=== PATIENT | female | born 1945 | race Caucasian/White ===

== ENCOUNTER 2016-10-01 14:50 | Emergency (ER) | payer OTHER, MEDICARE ==
[2016-10-01 15:17] VITALS: BP 123/92; PULSE 87; TEMP 98.4; BMI 29.6
--- NOTE | 2016-10-01 16:11 | PDOC ---
History of Present Illness - General Chief Complaint: Laceration Stated Complaint: LACERATED RT FINGER Time Seen by Provider: 10/01/16 15:59 History Source: Patient Exam Limitations: No Limitations - History of Present Illness Initial Comments: 10/01/16 16:34 10/01/16 17:21 Chief complaint: Puncture wound to right middle finger History of present illness: Patient is a 71-year-old female with a history of COPD/htn and asthma here today with a puncture wound to her right distal palmar middle finger trying to open the door stopper stopper. Pt. reports putting a lot of pressure on wound however bleeding would not stop. Patient takes a baby aspirin 3 times a week. Patient denies any pain or numbness of finger. Patient is up-to-date with tetanus 10/01/16 17:24 Occurred: reports: just prior to arrival Severity: reports: mild (rt. middle finger distal, palmar aspect, puncture wound ) Pain Location: reports: upper extremity (rt. middle distal palmar aspect puncture wound) Method of Injury: Yes: direct blow (by door stopper) Modifying Factors: improves with: None Loss of Consciousness: no loss of consciousness Associated Symptoms (Fall): denies symptoms Past History - Past Medical History Allergies/Adverse Reactions: Allergies Allergy/AdvReac Type Severity Reaction Status Date / Time Penicillins Allergy Verified 10/01/16 15:17 Home Medications: Ambulatory Orders Amlodipine Besylate/Benazepril [Lotrel 5-20 mg Capsule] 1 mg PO DAILY 07/15/13 Aspirin Coated [Ecotrin -] 81 mg PO MOWEFR 07/15/13 Ca Cmb No.1/Vit D3/B-6/FA/B12 [Vitamin D3 1,000 Unit Tablet] 1,000 iu PO DAILY 07/15/13 Fluticasone/Salmeterol [Advair Hfa 115-21 Mcg Inhaler] 12 gm IH BID 07/15/13 GuaiFENesin [Mucinex] 600 mg PO DAILY 07/15/13 Multivit-Min/FA/Lycopene/Lut [Centrum Silver Tablet] 1 tab PO DAILY 07/15/13 Tiotropium [place] [Spiriva] 18 mcg IH DAILY 07/15/13 Albuterol Sulfate Inhaler - [Ventolin HFA Inhaler -] 1 - 2 inh IH Q4H PRN Montelukast Na [Singulair -] 10 mg PO DAILY 07/18/13 COPD: Yes HTN: Yes - Surgical History Lung Surgery: Yes (nodule removed from lung) - Psycho/Social/Smoking Cessation Hx Anxiety: No Suicidal Ideation: No Smoking History: Former smoker Have you smoked in the past 12 months: No If you are a former smoker, when did you quit?: 30 yrs Information on smoking cessation initiated: No Hx Alcohol Use: No Drug/Substance Use Hx: No Substance Use Type: None Hx Substance Use Treatment: No Review of Systems - Review of Systems Able to Perform ROS?: Yes Constitutional: No: Symptoms Reported HEENTM: No: Symptoms Reported Respiratory: No: Symptoms reported Cardiac (ROS): No: Symptoms Reported Musculoskeletal: No: Symptoms Reported Integumentary: Yes: Other (puncture wound rt. middle finger, distal, palmar aspect) Neurological: No: Symptoms reported *Physical Exam - Vital Signs Last Vital Signs Temp Pulse Resp BP Pulse Ox 98.4 F 87 20 123/92 97 10/01/16 15:14 10/01/16 15:14 10/01/16 15:14 10/01/16 15:14 10/01/16 15:14 - Physical Exam General Appearance: Yes: Appropriately Dressed Comments:: 10/01/16 16:31 radial pulse 4 + rt. Extremity: positive: Normal Capillary Refill, Normal Range of Motion (rt. middle finger distal palmar aspect puncture wound ). negative: Normal Inspection Integumentary: positive: Normal Color (rt. middle finger), Other (rt. middle distal palmar aspect puncture wound ) Neurologic: positive: Alert, Normal Response, Respond to painful stimul, Responsive. negative: Sensory Deficit (rt. middle finger ) Procedures - Consent Consent obtained: From Patient - Laceration/Wound Repair Right Distal Volar Finger Wound Length: to 2.5 cm Wound Explored: clean Wound's Depth, Shape: superficial Irrigated w/ Saline: Yes Betadine Prep: Yes Number of Sutures: 0 Layer Closure: No Sterile Dressing Applied: Yes (rt. middle finger puncture wound ) Progress: 10/01/16 16:34 Right distal palmar middle finger tiny puncture wound cleansed with Betadine and normal saline 0.9% dried areas and apply tiny amount of Surgicel, Telfa and Juan Medical Decision Making - Medical Decision Making 10/01/16 17:24 Patient is a 71-year-old female with a history of COPD/htn and asthma here today with a puncture wound to her right distal palmar middle finger trying to open the door stopper stopper. Pt. reports putting a lot of pressure on wound however bleeding would not stop. Patient takes a baby aspirin 3 times a week. Patient denies any pain or numbness of finger. Patient is up-to-date with tetanus. Rt. middle distal palmar finger puncture wound PLAN: Applied tiny amount of Surgicel to right distal palmar finger after cleansing with Betadine and normal saline 0.9% and apply Telfa and Juan bleeding stopped Patient instructed to take Cipro 500 mg twice a day 7 days has at home Patient instructed to keep finger dry until this Thursday then may take off dressing allow Surgicel to fall off on its own and then cleansed finger with antibacterial soap and water pat dry and apply tiny amount of bacitracin ointment and dressing when out of house let air out at night *DC/Admit/Observation/Transfer Diagnosis at time of Disposition: Puncture wound of finger of right hand Qualifiers: Encounter type: initial encounter Qualified Code(s): S61.239A - Puncture wound without foreign body of unspecified finger without damage to nail, initial encounter - Discharge Dispostion Disposition: HOME Condition at time of disposition: Stable - Referrals Referrals: Song Hamilton MD [Primary Care Provider] - - Patient Instructions Additional Instructions: Keep right middle finger dry and dressing in place until Thursday morning than may remove gauge allow surgicel to fall off on it own than may apply a tiny amount of bacitracin ointment after washing finger twice daily with antibacterial soap drying it well cover with bandage when out of house let air out at night Return to emergency room if any discharge from wound or any redness of finger or swelling or increased tenderness take cipro 500 mg twice daily for 7 days Patient voiced understanding of discharge instructions and all questions were answered
== END 2016-10-01 16:43 | disposition home or self-care (01) ==
LOC: JERFT 14:50
PROC: 0HQFXZZ Repair Right Hand Skin, External Approach (ICD-10-PCS; principal; 2016-10-01)
DX: S61.232A Puncture wound without foreign body of right middle finger without damage to nail, initial encounter (principal); W26.8XXA Contact with other sharp object(s), not elsewhere classified, initial encounter; Y93.89 Activity, other specified; Y92.89 Other specified places as the place of occurrence of the external cause; I10 Essential (primary) hypertension; J44.9 Chronic obstructive pulmonary disease, unspecified
CPT/HCPCS: 12001-25; 99281-25

== ENCOUNTER → 2017-01-26 | Day surgery (SDC) | payer OTHER, MEDICARE ==
[2017-01-23 09:57] VITALS: BMI 29.2
[2017-01-26 08:15] LABS: BASOPHIL 0.6 % (0-2.0); MCH 30.3 pg (25.7-33.7); MCHC 33.5 g/dl (32.0-36.0); MEAN CELL VOLUME 90.5 fl (80-96); MEAN PLT VOLUME 8.1 fl (7.5-11.1); NEUTROPHILS 70.1 % (42.8-82.8); PLATELET COUNT 312 K/MM3 (134-434); RDW 13.7 % (11.6-15.6); WHITE BLOOD COUNT 8.7 K/mm3 (4.0-10.0)
[2017-01-26 08:37] VITALS: TEMP 97.6
[2017-01-26 08:40] LABS: INR 0.93 (0.82-1.09); PROTHROMBIN TIME (PATIENT) 10.2 SEC (9.98-11.88)
[2017-01-26 10:51] VITALS: BP 132/63; PULSE 107
== END | disposition home or self-care (01) ==
LOC: JASU-SURG 07:59
PROVIDERS: ATTEND Internal Medicine Pulmonary Disease
PROC: BB24YZZ Computerized Tomography (CT Scan) of Bilateral Lungs using Other Contrast (ICD-10-PCS; principal; 2017-01-26)
PROC: 0BBG3ZX Excision of Left Upper Lung Lobe, Percutaneous Approach, Diagnostic (ICD-10-PCS; 2017-01-26)
DX: R91.8 Other nonspecific abnormal finding of lung field (principal); Z53.8 Procedure and treatment not carried out for other reasons
CPT/HCPCS: 36415; 71250-TC; 85025; 85610

== ENCOUNTER 2018-03-28 10:02 | Emergency (ER) | payer OTHER, MEDICARE ==
[2018-03-28 10:10] VITALS: BP 139/67; PULSE 99; TEMP 98; BMI 29.2
--- NOTE | 2018-03-28 10:39 | PDOC ---
History of Present Illness - General Chief Complaint: Injury Stated Complaint: RT KNEE INJURY Time Seen by Provider: 03/28/18 10:26 History Source: Patient Exam Limitations: Clinical Condition - History of Present Illness Initial Comments: 03/28/18 10:35 Patient with no significant past medication present with complaint of right knee pain status post slip and fall on the concrete floor yesterday. Patient reports increased pain with ambulation and flexion of right knee. Patient denies hitting head or loss of consciousness. Patient denies any other symptoms Timing/Duration: 24 hours Past History - Past Medical History Allergies/Adverse Reactions: Allergies Allergy/AdvReac Type Severity Reaction Status Date / Time Penicillins Allergy Verified 03/28/18 10:09 Home Medications: Ambulatory Orders Aspirin Coated [Ecotrin -] 81 mg PO MOWEFR 07/15/13 Multivit-Min/FA/Lycopene/Lut [Centrum Silver Tablet] 1 tab PO DAILY 07/15/13 Tiotropium [place] [Spiriva] 18 mcg IH DAILY 07/15/13 Montelukast Na [Singulair -] 10 mg PO DAILY 07/18/13 Albuterol 0.083% Nebulizer Erum [Ventolin 0.083%] 1 neb NEB DAILY 01/23/17 Albuterol Sulfate [Proair Respiclick] 90 mcg IH PRN PRN 01/23/17 Amlodipine Besylate/Benazepril [Lotrel 10-20 mg Capsule] 1 tab PO DAILY Cholecalciferol (Vitamin D3) [Vitamin D3 -] 1,000 unit PO DAILY 01/23/17 Guaifenesin [Mucinex] 600 mg PO DAILY 01/23/17 Ranitidine HCl [Zantac] 150 mg PO BID 01/23/17 Salmeterol/Fluticasone [Advair 500Mcg/50Mcg] 1 inh PO BID 01/23/17 Naproxen 500 mg PO BID PRN #20 tablet 03/28/18 Asthma: Yes COPD: Yes GI Disorders: Yes (REFLUX) HTN: Yes - Surgical History Lung Surgery: Yes (nodule removed from lung) - Suicide/Smoking/Psychosocial Hx Smoking History: Never smoked Have you smoked in the past 12 months: No If you are a former smoker, when did you quit?: 30 yrs Information on smoking cessation initiated: No Hx Alcohol Use: No Drug/Substance Use Hx: No Substance Use Type: None Hx Substance Use Treatment: No Review of Systems - Review of Systems Able to Perform ROS?: Yes Is the patient limited [place]ian proficient: No Constitutional: No: Weakness HEENTM: No: Blurred Vision, Double Vision Respiratory: No: Symptoms reported Cardiac (ROS): No: Symptoms Reported ABD/GI: No: Symptoms Reported Musculoskeletal: Yes: See HPI, Joint Pain (right knee), Muscle Pain (anterior right knee). No: Joint Swelling, Muscle Weakness, Joint Stiffness All Other Systems: Reviewed and Negative *Physical Exam - Vital Signs Last Vital Signs Temp Pulse Resp BP Pulse Ox 98 F 99 H 18 139/67 97 03/28/18 10:07 03/28/18 10:07 03/28/18 10:07 03/28/18 10:07 03/28/18 10:07 - Physical Exam Comments: 03/28/18 10:37 GENERAL: Well developed, well nourished. Awake and alert. No acute distress. CARDIOVASCULAR: Regular rate and rhythm. No murmurs, rubs, or gallops. PULMONARY: No evidence of respiratory distress. Lungs clear to auscultation bilaterally. No wheezing, rales or rhonchi. ABDOMINAL: Soft. Non-tender. Non-distended. No rebound or guarding. No organomegaly. Normoactive bowel sounds MUSCULOSKELETAL : moderate tenderness to anterior patella of right knee. mild tenderness to medial and lateral collateral ligament of right knee. no knee swelling. neg anterior-posterior drawer test. bony deformities EXTREMITIES: No cyanosis. No clubbing. No edema. No calf tenderness. SKIN: Warm and dry. Normal capillary refill. No rashes. No jaundice. NEUROLOGICAL: Alert, awake, appropriate. No motor deficits in the lower extremities. Gait is normal without ataxia. PSYCHIATRIC: Cooperative. Good eye contact. Appropriate mood and affect. General Appearance: Yes: Nourished, Appropriately Dressed. No: Apparent Distress ED Treatment Course - RADIOLOGY Radiology Studies Ordered: Category Date Time Status KNEE 3 POS-RIGHT [RAD] Stat Radiology 03/28/18 10:34 Ordered Medical Decision Making - Medical Decision Making 03/28/18 10:38 Patient with no significant past medication present with complaint of right knee pain status post slip and fall yesterday with increased pain with ambulation and flexion of right knee. Exam significant for moderate tenderness to anterior patellar of right knee. X-ray of right knee ordered to rule out acute fracture or dislocation. Treat on imaging results 03/28/18 11:10 x-ray of right knee shows no acute fracture or dislocation. Patient stable for discharge on NSAIDS and heat therapy with orthopedics follow-up *DC/Admit/Observation/Transfer Diagnosis at time of Disposition: Contusion of knee, right Qualifiers: Encounter type: initial encounter Qualified Code(s): S80.01XA - Contusion of right knee, initial encounter - Discharge Dispostion Disposition: HOME Condition at time of disposition: Stable Decision to Admit order: No - Prescriptions Prescriptions: Naproxen 500 mg PO BID PRN #20 tablet PRN Reason: knee pain - Referrals Referrals: Song Hamilton MD [Primary Care Provider] - Jitendra Boo MD [Staff Physician] - - Patient Instructions Printed Discharge Instructions: DI for Knee Pain Additional Instructions: Your x-ray shows no fracture. Take prescribed medication as needed for pain. Elevate right knee for next 24 hours and apply heat to right knee 2-3 times a day for 5-10mins as needed - Post Discharge Activity
== END 2018-03-28 11:22 | disposition home or self-care (01) ==
LOC: JERFT 10:02
DX: S80.01XA Contusion of right knee, initial encounter (principal); W18.39XA Other fall on same level, initial encounter; Y93.89 Activity, other specified; Y92.89 Other specified places as the place of occurrence of the external cause; Y99.8 Other external cause status; I10 Essential (primary) hypertension; J45.909 Unspecified asthma, uncomplicated; J44.9 Chronic obstructive pulmonary disease, unspecified; K21.9 Gastro-esophageal reflux disease without esophagitis
CPT/HCPCS: 73562-TC-RT-FY; 99281-25

== ENCOUNTER 2021-09-11 04:43 | Day surgery (SDC) | payer OTHER, MEDICARE ==
[2021-09-10 11:15] VITALS: BMI 29.9
[~2021-09-11 04:43] MED LIST: ACETAMINOPHEN 325 MG TABLET (FP) PO PRN
[2021-09-11] MEDS ORDERED: CHONDROITIN SU A/HYALUR SOD 1 KIT ONE (07:16)
[2021-09-11] MEDS ORDERED: TRYPAN BLUE 0.5 ML DISP.SYRIN ONE ×2 (08:13→12:09)
[2021-09-11] MEDS ORDERED: PHENYLEPHRINE 2.5% OPTHALMIC DROP BOTTLE ONE ×2 (09:50→09:52)
[2021-09-11] MEDS ORDERED: CYCLOPENTOLATE HCL 1% OPHTH SOLN 2 ML BOTTLE ONE (09:50)
[2021-09-11] MEDS ORDERED: OFLOXACIN 0.3% OPHTHALMIC SOLUTION 5 ML BOTTLE ONE (09:50)
[2021-09-11] MEDS ORDERED: KETOROLAC TROMETHAMINE 0.5% EYE DROP 1 DROP DROPS ONE (09:50)
[2021-09-11] MEDS ORDERED: TROPICAMIDE 1% OPHTH SOLN 15 ML BOTTLE ONE (09:50)
[2021-09-11] MEDS: TROPICAMIDE 1% OPHTH SOLN 15 ML BOTTLE OP SCH ×3 (10:05→10:30)
[2021-09-11] MEDS: CYCLOPENTOLATE HCL 1% OPHTH SOLN 2 ML BOTTLE OP SCH ×3 (10:05→10:30)
[2021-09-11] MEDS: OFLOXACIN 0.3% OPHTHALMIC SOLUTION 5 ML BOTTLE OP SCH ×3 (10:05→10:30)
[2021-09-11] MEDS: PHENYLEPHRINE 2.5% OPHTH SOLN 15 ML BOTTLE OP SCH ×3 (10:05→10:30)
[2021-09-11] MEDS: KETOROLAC TROMETHAMINE 0.5% EYE DROP 1 DROP DROPS OP SCH ×3 (10:05→10:30)
[2021-09-11] MEDS ORDERED: ACETYLCHOLINE 1:100 INTRA-OCUL 20 MG/2 ML KIT ONE (12:09)
[2021-09-11] MEDS ORDERED: LIDOCAINE HCL/PF 2% SDV 5ML VIAL ONE (12:41)
[2021-09-11] MEDS ORDERED: PROPOFOL 20 ML ONE ×2 (12:41)
[2021-09-11] MEDS ORDERED: POVIDONE-IODINE 5% OPHTHALMIC PREP 30 ML SOLUTION OD ONE (12:55)
[2021-09-11] MEDS ORDERED: LIDOCAINE HCL 1% PRESERVATIVE FREE - 30ML VIAL IO ONE (13:03)
[2021-09-11] MEDS ORDERED: DEXAMETHASONE SOD PHOSPHATE 4 MG/1 ML VIAL ONE (13:04)
[2021-09-11] MEDS ORDERED: CHONDROITIN SU A/HYALUR SOD 1 KIT IO ONE (13:04)
[2021-09-11] MEDS ORDERED: BSS (NA/CA/MG/K) BALANCED SALT SOLUTION OPHTH SOLN 15 ML BOTTLE IO ONE ×2 (13:05→13:19)
[2021-09-11] MEDS ORDERED: EPINEPHrine/PF 1 MG/1 ML (1:1,000) AMPULE IO ONE (13:09)
[2021-09-11] MEDS ORDERED: ONDANSETRON 4 MG/2 ML VIAL IVPUSH PRN (13:43)
[2021-09-11] MEDS ORDERED: SODIUM CHLORIDE 1,000 ML IV SCH (13:45)
[2021-09-11 15:33] VITALS: BP 129/72; PULSE 97; TEMP 97.1
== END 2021-09-11 15:25 | disposition home or self-care (01) ==
LOC: JASU-SURG 04:43
PROVIDERS: ATTEND Ophthalmology
PROC: 08RJ3JZ Replacement of Right Lens with Synthetic Substitute, Percutaneous Approach (ICD-10-PCS; principal; 2021-09-11 12:00)
DX: H26.9 Unspecified cataract (principal); J44.9 Chronic obstructive pulmonary disease, unspecified; F41.9 Anxiety disorder, unspecified
CPT/HCPCS: 94760

== ENCOUNTER 2021-10-25 06:50 | Inpatient (IN) | payer OTHER, MEDICARE ==
[2021-10-25 06:57] VITALS: BMI 29.6
[2021-10-25] MEDS ORDERED: ALBUTEROL SO4 2.5/IPRATROPIUM 0.5 INH SOL 3 ML VIAL.NEB. NEB ONE ×5 (07:27→08:27)
[2021-10-25 08:00] LABS: VENOUS BASE EXCESS 0.5 mmol/L (-2-2); VENOUS O2 SATURATION 91.3 % (70-80); VENOUS PCO2 37.5 mmHg (38-52); VENOUS PH 7.433 (7.310-7.410)
[2021-10-25 08:17] LABS: HEMATOCRIT 42.4 % (32.4-45.2); HEMOGLOBIN 14.1 GM/dL (10.7-15.3); MCH 30.3 pg (25.7-33.7); MCHC 33.2 g/dl (32.0-36.0); MEAN CELL VOLUME 91.1 fl (80-96); MEAN PLT VOLUME 8.9 fl (7.5-11.1); PLATELET COUNT 272 10^3/uL (134-434); RBC 4.66 M/mm3 (3.60-5.2); RDW 13.3 % (11.6-15.6); WHITE BLOOD COUNT 20.3 K/mm3 (4.0-10.0)
[2021-10-25 08:30] LABS: N-TERMINAL BNP 617.1 pg/ml (5-450)
[2021-10-25 08:40] LABS: INR 0.91 (0.83-1.09); PROTHROMBIN TIME (PATIENT) 10.5 SEC (9.7-13.0)
[2021-10-25 08:43] LABS: ACTIVATED PTT 24.4 SECONDS (25.2-36.5)
[2021-10-25 08:48] LABS: BLOOD UREA NITROGEN 26.5 mg/dL (7-18); CALCIUM 9.4 mg/dL (8.5-10.1); MAGNESIUM 1.9 mg/dL (1.8-2.4)
[2021-10-25 08:51] LABS: CREATININE 0.9 mg/dL (0.55-1.3)
[2021-10-25 08:53] LABS: BILIRUBIN,TOTAL 0.7 mg/dL (0.2-1); TOT PROT 6.9 g/dl (6.4-8.2)
[2021-10-25] MEDS ORDERED: FUROSEMIDE 40 MG/4 ML INJECTABLE VIAL IVPUSH ONE (09:27)
[2021-10-25] MEDS ORDERED: methylPREDNISolone NA SUCC 125 MG/2 ML VIAL IVPB ONE (09:27)
[2021-10-25] MEDS ORDERED: FUROSEMIDE 40 MG/4 ML INJECTABLE VIAL ONE (09:34)
[2021-10-25] MEDS ORDERED: methylPREDNISolone NA SUCC 125 MG/2 ML VIAL ONE (09:34)
[2021-10-25 10:28] LABS: ANISOCYTOSIS 0; HELMET CELLS 0; HOWELL-JOLLY BODIES 0; MACROCYTOSIS 0; OVALOCYTE 0; ROULEAU 0; SICKELED CELLS 0; TARGET CELLS 0; TEAR DROP CELLS 0; TOXIC GRANULATION 0
[2021-10-25] MEDS ORDERED: AZITHROMYCIN IVPB 500 MG in DEXTROSE 5%-WATER - 250 ML IVPB ONE (10:44)
[2021-10-25] MEDS ORDERED: AZITHROMYCIN IVPB 500 MG/250 ML BAG IVPB ONE (10:50)
[2021-10-25] MEDS ORDERED: ALBUTEROL SO4 2.5/IPRATROPIUM 0.5 INH SOL 3 ML VIAL.NEB. NEB SCH (20:00)
[2021-10-25] MEDS: ATORVASTATIN CA 20 MG TABLET (FP) PO SCH (22:53)
[2021-10-25] MEDS: MONTELUKAST NA 10 MG TABLET PO SCH (22:53)
[2021-10-25] MEDS: methylPREDNISolone NA SUCC 40 MG/1 ML VIAL IVPUSH SCH (22:53)
[2021-10-26] MEDS: methylPREDNISolone NA SUCC 40 MG/1 ML VIAL IVPUSH SCH ×4 (02:19→21:35)
[2021-10-26] MEDS: ALBUTEROL SO4 0.083% IH SOL 2.5 MG/3 ML VIAL.NEB. NEB PRN ×4 (08:03→20:05)
[2021-10-26 10:15] LABS: HEMATOCRIT 42.4 % (32.4-45.2); HEMOGLOBIN 14.1 GM/dL (10.7-15.3); MCH 30.3 pg (25.7-33.7); MCHC 33.2 g/dl (32.0-36.0); MEAN CELL VOLUME 91.3 fl (80-96); MEAN PLT VOLUME 9.4 fl (7.5-11.1); PLATELET COUNT 289 10^3/uL (134-434); RBC 4.64 M/mm3 (3.60-5.2); RDW 13.5 % (11.6-15.6)
[2021-10-26 10:34] LABS: ALBUMIN 3.6 g/dl (3.4-5.0); BILIRUBIN,TOTAL 0.5 mg/dL (0.2-1); CREATININE 0.9 mg/dL (0.55-1.3)
[2021-10-26] MEDS: RANOLAZINE E.R. 500 MG TABLET (FP) PO SCH (11:10)
[2021-10-26] MEDS: amLODIPine BESYLATE 10 MG TABLET (FP) PO SCH (11:10)
[2021-10-26] MEDS: ENALAPRIL MALEATE 10 MG TABLET PO SCH (11:11)
[2021-10-26] MEDS: FLUTICASONE/UMECLIDIN/VILANTER(200-62.5-25 TRELEGY ELLIPTA) INAHLER IH SCH (13:53)
[2021-10-26] MEDS: MONTELUKAST NA 10 MG TABLET PO SCH (21:35)
[2021-10-26] MEDS: ATORVASTATIN CA 20 MG TABLET (FP) PO SCH (21:35)
[2021-10-27] MEDS: methylPREDNISolone NA SUCC 40 MG/1 ML VIAL IVPUSH SCH ×3 (02:38→17:07)
[2021-10-27] MEDS: ALBUTEROL SO4 0.083% IH SOL 2.5 MG/3 ML VIAL.NEB. NEB PRN ×3 (07:30→16:01)
[2021-10-27 08:33] LABS: HEMATOCRIT 41.9 % (32.4-45.2); HEMOGLOBIN 14.2 GM/dL (10.7-15.3); MCH 31.1 pg (25.7-33.7); MCHC 33.8 g/dl (32.0-36.0); MEAN CELL VOLUME 92.1 fl (80-96); MEAN PLT VOLUME 9.5 fl (7.5-11.1); PLATELET COUNT 285 10^3/uL (134-434); RBC 4.56 M/mm3 (3.60-5.2); RDW 13.7 % (11.6-15.6); WHITE BLOOD COUNT 14.7 K/mm3 (4.0-10.0)
[2021-10-27 08:41] LABS: CALCIUM 9.9 mg/dL (8.5-10.1)
[2021-10-27 08:42] LABS: BLOOD UREA NITROGEN 25.4 mg/dL (7-18)
[2021-10-27] MEDS: ENALAPRIL MALEATE 10 MG TABLET PO SCH (09:35)
[2021-10-27] MEDS: amLODIPine BESYLATE 10 MG TABLET (FP) PO SCH (09:35)
[2021-10-27] MEDS: FUROSEMIDE 40 MG/4 ML INJECTABLE VIAL IVPUSH SCH (09:35)
[2021-10-27] MEDS: RANOLAZINE E.R. 500 MG TABLET (FP) PO SCH (09:35)
[2021-10-27] MEDS: FLUTICASONE/UMECLIDIN/VILANTER(200-62.5-25 TRELEGY ELLIPTA) INAHLER IH SCH (09:36)
[2021-10-27 10:15] LABS: ANISOCYTOSIS 0; HELMET CELLS 0; HOWELL-JOLLY BODIES 0; MACROCYTOSIS 0; OVALOCYTE 0; ROULEAU 0; SICKELED CELLS 0; TARGET CELLS 0; TEAR DROP CELLS 0; TOXIC GRANULATION 0
[2021-10-27] MEDS: ATORVASTATIN CA 20 MG TABLET (FP) PO SCH (21:35)
[2021-10-27] MEDS: MONTELUKAST NA 10 MG TABLET PO SCH (21:35)
[2021-10-28] MEDS: methylPREDNISolone NA SUCC 40 MG/1 ML VIAL IVPUSH SCH ×3 (01:29→17:48)
[2021-10-28] MEDS: ALBUTEROL SO4 0.083% IH SOL 2.5 MG/3 ML VIAL.NEB. NEB PRN ×4 (08:13→22:00)
[2021-10-28 09:16] LABS: BLOOD UREA NITROGEN 27.4 mg/dL (7-18); CALCIUM 9.8 mg/dL (8.5-10.1)
[2021-10-28 09:20] LABS: CREATININE 0.9 mg/dL (0.55-1.3)
[2021-10-28] MEDS: FUROSEMIDE 40 MG/4 ML INJECTABLE VIAL IVPUSH SCH (10:12)
[2021-10-28] MEDS: ENALAPRIL MALEATE 10 MG TABLET PO SCH (10:13)
[2021-10-28] MEDS: RANOLAZINE E.R. 500 MG TABLET (FP) PO SCH (10:13)
[2021-10-28] MEDS: amLODIPine BESYLATE 10 MG TABLET (FP) PO SCH (10:13)
[2021-10-28] MEDS: FLUTICASONE/UMECLIDIN/VILANTER(200-62.5-25 TRELEGY ELLIPTA) INAHLER IH SCH (10:14)
[2021-10-28] MEDS: MONTELUKAST NA 10 MG TABLET PO SCH (21:26)
[2021-10-28] MEDS: ATORVASTATIN CA 20 MG TABLET (FP) PO SCH (21:26)
[2021-10-29] MEDS: methylPREDNISolone NA SUCC 40 MG/1 ML VIAL IVPUSH SCH ×2 (02:04→09:36)
[2021-10-29] MEDS: ALBUTEROL SO4 0.083% IH SOL 2.5 MG/3 ML VIAL.NEB. NEB PRN ×2 (06:18→11:45)
[2021-10-29] MEDS: FUROSEMIDE 40 MG/4 ML INJECTABLE VIAL IVPUSH SCH (09:36)
[2021-10-29] MEDS: FLUTICASONE/UMECLIDIN/VILANTER(200-62.5-25 TRELEGY ELLIPTA) INAHLER IH SCH (09:37)
[2021-10-29] MEDS: RANOLAZINE E.R. 500 MG TABLET (FP) PO SCH (09:37)
[2021-10-29] MEDS: ENALAPRIL MALEATE 10 MG TABLET PO SCH (09:37)
[2021-10-29] MEDS: amLODIPine BESYLATE 10 MG TABLET (FP) PO SCH (09:39)
[2021-10-29] MEDS: MONTELUKAST NA 10 MG TABLET PO SCH (21:42)
[2021-10-29] MEDS: ATORVASTATIN CA 20 MG TABLET (FP) PO SCH (21:42)
[2021-10-29] MEDS ORDERED: methylPREDNISolone NA SUCC 40 MG/1 ML VIAL IVPUSH SCH (22:00)
[2021-10-30] MEDS: ALBUTEROL SO4 0.083% IH SOL 2.5 MG/3 ML VIAL.NEB. NEB PRN ×3 (07:59→15:45)
[2021-10-30] MEDS: methylPREDNISolone NA SUCC 40 MG/1 ML VIAL IVPUSH SCH (09:31)
[2021-10-30] MEDS: RANOLAZINE E.R. 500 MG TABLET (FP) PO SCH (09:33)
[2021-10-30] MEDS: amLODIPine BESYLATE 10 MG TABLET (FP) PO SCH (09:33)
[2021-10-30] MEDS: FLUTICASONE/UMECLIDIN/VILANTER(200-62.5-25 TRELEGY ELLIPTA) INAHLER IH SCH (09:33)
[2021-10-30] MEDS: ENALAPRIL MALEATE 10 MG TABLET PO SCH (09:33)
[2021-10-30] MEDS: FUROSEMIDE 40 MG TABLET (FP) PO SCH (09:34)
[2021-10-30] MEDS: predniSONE 20 MG TABLET (UD) PO SCH ×2 (09:41→21:01)
[2021-10-30] MEDS: MONTELUKAST NA 10 MG TABLET PO SCH (21:01)
[2021-10-30] MEDS: ATORVASTATIN CA 20 MG TABLET (FP) PO SCH (21:01)
[2021-10-31 09:07] VITALS: BP 142/78; PULSE 95; TEMP 98.1
[2021-10-31] MEDS: RANOLAZINE E.R. 500 MG TABLET (FP) PO SCH (09:17)
[2021-10-31] MEDS: amLODIPine BESYLATE 10 MG TABLET (FP) PO SCH (09:17)
[2021-10-31] MEDS: predniSONE 20 MG TABLET (UD) PO SCH (09:17)
[2021-10-31] MEDS: FUROSEMIDE 40 MG TABLET (FP) PO SCH ×2 (09:17→09:25)
[2021-10-31] MEDS: ENALAPRIL MALEATE 10 MG TABLET PO SCH (09:19)
[2021-10-31] MEDS: FLUTICASONE/UMECLIDIN/VILANTER(200-62.5-25 TRELEGY ELLIPTA) INAHLER IH SCH (09:19)
== END 2021-10-31 12:30 | disposition home or self-care (01) | DRG 191 ==
LOC: JER 06:50 → JERBED 11:00 → J5S 13:26 → J4S 10-27 14:27
PROVIDERS: ADMIT Internal Medicine Pulmonary Disease; ATTEND Family Medicine
DX: J44.1 Chronic obstructive pulmonary disease with (acute) exacerbation (principal); B37.81 Candidal esophagitis; J44.0 Chronic obstructive pulmonary disease with (acute) lower respiratory infection; I10 Essential (primary) hypertension; E78.5 Hyperlipidemia, unspecified; I25.10 Atherosclerotic heart disease of native coronary artery without angina pectoris; I48.0 Paroxysmal atrial fibrillation; K21.9 Gastro-esophageal reflux disease without esophagitis; R91.8 Other nonspecific abnormal finding of lung field; I49.3 Ventricular premature depolarization
CPT/HCPCS: 0241U-QW; 36415; 71046-TC-FY; 80048; 80053; 82803; 83735; 83880; 84484; 85025; 85027; 85610; 85730; 87070; 87077; 87205; 93005; 93010; 93225; 93226; 94640; 99291